=== PATIENT | female | born 1970 | race Caucasian/White ===

== ENCOUNTER 2020-10-24 06:13 | Emergency (ER) | payer OTHER, SELFPAY ==
[2020-10-24 06:24] VITALS: BP 134/92; PULSE 84; RESP 20; TEMP 36.8; O2SAT 96; BMI 30.8
[2020-10-24] MEDS: TRIMETH/SULFA 160/800 (DS) TABLET 1 TAB PO (06:44)
--- NOTE | 2020-10-24 06:44 | ED_ITS ---
HPI - Eye Problem General Chief complaint: Eye Problems Stated complaint: swelling around eyes Time Seen by Provider: 10/24/20 06:24 Source: patient Mode of arrival: Ambulatory Limitations: no limitations History of Present Illness HPI Narrative: 50-year-old otherwise completely healthy woman who presents with 3 days of increasing eyelid edema, erythema and increasing pain. She does not specifically recall trauma, bug bites or specific inflammation along the lash line. She does not have any itching or burning of the eye. There is no vision changes, no pain with tracking, no photophobia, headache, or sinus difficulties or changes. She has never had similar findings. She reports no cough, palpitations, dyspnea, abdominal pain, dysuria, diarrhea. Related Data Previous Rx's Medication Instructions Recorded amoxicillin 500 mg PO TID #15 cap 10/24/20 sulfamethoxazole-trimethoprim 1 tab PO BID #10 tab 10/24/20 [Bactrim DS] Allergies Allergy/AdvReac Type Severity Reaction Status Date / Time No Known Drug Allergies Allergy Verified 10/24/20 06:43 Review of Systems Review of Systems Narrative: Remainder of complete review of systems is otherwise unremarkable except for that included in the HPI. Patient History Social History Smoking Status: Current some day smoker Smoking Status: Current some day smoker tobacco type: cigarettes alcohol intake frequency: a few times a month Substance Use Type: does not use Exam Narrative Exam Narrative: General: Alert appropriate in no acute distress HEENT: Preseptal edema on the right side with erythema and tenderness developing on the medial aspect of the upper lid. No purulence drainage from the eye. Smooth an easy tracking is appreciated. Pupils are equal and reactive bilaterally without pain. There is no vision changes, no involvement of the lower lid. No nasal discharge and no rashes or vesicular lesions appreciated knee area. Respiratory: Able to speak in full sentences, no obvious respiratory distress Skin: No obvious rashes, warm and dry Neurologic: Grossly intact no obvious asymmetries or abnormalities Psych: appropriate insight and affect, cooperative Initial Vital Signs Initial Vital Signs: Vital Signs Temperature 98.2 F 10/24/20 06:24 Pulse Rate 84 10/24/20 06:24 Respiratory Rate 20 10/24/20 06:24 Blood Pressure 134/92 H 10/24/20 06:24 Pulse Oximetry 96 10/24/20 06:24 Course Orders Ordered: Discontinued Medications Trimethoprim/Sulfamethoxazole (Trimeth/Sulfa 160/800 (Ds) Tablet) 1 tab PO NOW ONE Stop: 10/24/20 06:41 Last Admin: 10/24/20 06:44 Dose: 1 tab Documented by: Vital Signs Vital signs: Vital Signs - 8 hr 10/24/20 06:24 Temperature 98.2 F Pulse Rate 84 Respiratory Rate 20 Blood Pressure 134/92 H Pulse Oximetry 96 [facility] - Eye Problem Medical Records Attestation: I reviewed the patient's medical records. [facility] Narrative Medical decision making narrative: Otherwise healthy woman with 3 days of increasing pain and erythema to the right upper eyelid. This does not appear to be a orbital cellulitis or of the shingles outbreak. I suspect that there was likely some type of small irritation to the eyelid and that has since become superinfected which is why the pain and redness swelling or increasing today. Will place her on Septra twice a day along with amoxicillin (antibiotic regimen suggested by up-to-date for preseptal cellulitis) clear instructions for return to the ER reviewed with her. She is safe for home discharge Discharge Plan Departure Patient Disposition: Home Clinical Impression: Periorbital cellulitis Qualifiers: Laterality: right Qualified Code(s): L03.213 - Periorbital cellulitis Instructions: DI for Cellulitis -- Adult Activity Restrictions/Additional Instructions: Thank you for coming in today I suspect that your developing a periorbital cellulitis, and infection in the eyelid itself. I do not think that there is a deeper infection back behind your eye ball. I would recommend continued hot compresses to the eye to encourage drainage. I have started you on Bactrim and amoxicillin. These antibiotics need to be taken for 5 full days. If you find by Sunday that you are getting worse, I would recommend that you return to the emergency room for further evaluation. If at any time you notice a decrease in vision, pain with light going into the eyeball, pain with moving the eyeball itself or developed fevers or severe headache you do need to return to the ER. I hope you heal quickly Prescriptions: New sulfamethoxazole-trimethoprim [Bactrim DS] 800-160 mg tablet 1 tab PO BID Qty: 10 RF: 0 amoxicillin 500 mg capsule 500 mg PO TID Qty: 15 RF: 0
[2020-10-24 07:36] VITALS: BP 123/70; PULSE 66; RESP 18; O2SAT 97
== END 2020-10-24 07:37 | disposition home or self-care (01) ==
LOC: ED 07:16
PROVIDERS: Emergency Provider Emergency Medicine
DX: L03.213 Periorbital cellulitis (principal)
CPT/HCPCS: 99283

== ENCOUNTER → 2021-05-04 08:56 | Outpatient (CLI) | payer OTHER, SELFPAY ==
[2021-05-04 09:33] LABS: COVID19 -Nasal RAPID Negative (Negative)
== END ==
PROVIDERS: Visit Provider Physician Assistant
DX: Z20.822 Contact with and (suspected) exposure to COVID-19 (principal)
CPT/HCPCS: 87635

== ENCOUNTER → 2021-11-15 09:30 | Outpatient (CLI) | payer OTHER, SELFPAY ==
[2021-11-15 11:02] LABS: Alanine Aminotransferase 14 IU/L (<35); Albumin 4.2 g/dL (3.5-5.0); Albumin Globulin Ratio 1.4 (1.0-2.8); Alkaline Phosphatase 47 U/L (38-126); Aspartate Aminotransferase 27 IU/L (14-36); Bilirubin Total 0.6 mg/dL (0.2-1.3); Blood Urea Nitrogen 10 mg/dL (7-17); Calcium 9.1 mg/dL (8.4-10.2); Carbon Dioxide 27 mmol/L (22-32); Chloride 106 mmol/L (98-107); Cholesterol 174 mg/dL (140-199); Estimated Glomerular Filt Rate > 60 mL/min (>60); Globulin 3.1 g/dL (1.7-4.1); Glucose 83 mg/dL (70-100); HDL Cholesterol 48 mg/dL (40-60); HEMOLYSIS < 15 (0-50); LDL Cholesterol Calculated 98 mg/dL (<100); Potassium 4.1 mmol/L (3.4-5.1); Sodium 138 mmol/L (137-145); Total Protein 7.3 g/dL (6.3-8.2); Triglycerides 138 mg/dL (35-150)
== END ==
PROVIDERS: PCP Family Medicine; Referring Provider Family Medicine; Visit Provider Family Medicine
DX: Z13.220 Encounter for screening for lipoid disorders (principal)
CPT/HCPCS: 36415; 80053; 80061

== ENCOUNTER → 2022-02-13 09:23 | Outpatient (CLI) | payer OTHER, SELFPAY ==
[2022-02-13 12:40] LABS: COVID19 -Nasal RAPID Negative (Negative)
== END ==
PROVIDERS: PCP Family Medicine; Visit Provider Surgery
DX: Z01.812 Encounter for preprocedural laboratory examination (principal); Z20.822 Contact with and (suspected) exposure to COVID-19
CPT/HCPCS: 87635; C9803

== ENCOUNTER → 2022-03-13 09:03 | Outpatient (CLI) | payer OTHER, SELFPAY ==
[2022-03-13 10:58] LABS: COVID19 -Nasal RAPID Negative (Negative)
== END ==
PROVIDERS: PCP Family Medicine; Visit Provider Surgery
DX: Z20.822 Contact with and (suspected) exposure to COVID-19 (principal); Z01.812 Encounter for preprocedural laboratory examination
CPT/HCPCS: 87635; C9803

== ENCOUNTER 2022-03-14 10:31 | Day surgery (SDC) | payer OTHER, SELFPAY ==
--- NOTE | 2022-03-14 | PATH_ITS ---
[facility] Accession Number: [id number] . 01 Material submitted: . rectum - RECTUM POLYP . 01 Diagnosis: Rectum, Polyp, Biopsy: Hyperplastic polyp. MRV 03/20/2022 1226 Local . 01 Electronically signed: . Jo-Ann Dawson MD, Pathologist NPI- [id number] . 01 Gross description: . RECTUM POLYP: Received in formalin are 2 fragment(s) of cristina, soft tissue measuring 0.3 x 0.1 x 0.1 cm to 0.2 x 0.1 x 0.1 cm submitted entirely in 1 cassette(s) /CPE 03/18/2022 0712 Local . 01 Pathologist provided ICD-10: K62.1 . 01 CPT . 606530 Specimen Comment: A courtesy copy of this report has been sent to [phone] Performed at: 01 [facility] [address] [place] [address], [place], [place] [id number] MD Meliton Angulo MD Phone: [phone]
[2022-03-14] MEDS: SODIUM CHLORIDE 0.9% 1,000 ML 150 ML IV (10:40)
[2022-03-14 10:52] VITALS: BP 138/89; PULSE 105; RESP 16; TEMP 36.3; O2SAT 99; BMI 29.2
--- NOTE | 2022-03-14 11:37 | PM.HP.1 ---
History of Present Illness History of Present Illness Date Patient Seen: 03/14/22 Time Patient Seen: 11:37 Chief complaint: SCREENING COLONOSCOPY Narrative: The patient presents for colorectal screening. They have never had any previous examination for such. No personal or family history of colon cancer. On further history denies any recent gastrointestinal symptoms. No nausea, vomiting, abdominal pain, loss of appetite, unexplained weight loss, change in bowel habits, diarrhea, constipation, melena, hematochezia, or bright red blood per rectum. Patient History Medical History Ankle pain (~1996) Bunion, left foot Chicken pox (~1977) Hemorrhoid (~2007) Herpes (~2004) History of urinary incontinence (~2011) Left-sided low back pain without sciatica Lumbar region somatic dysfunction Screen for colon cancer Screening for cervical cancer Screening for hyperlipidemia Segmental and somatic dysfunction of abdomen and other regions Shoulder pain (~2007) Skin cancer (~2011) Viral syndrome Surgical History Anesthesia History of tonsillectomy (~1986) History of tubal ligation (~1997) Skin cancer of face (~2020) Family & Social History Social History: household members spouse Tobacco & Substance use: Smoking Status Current every day smoker alcohol intake frequency a few times a month Substance Use Type does not use Meds Home Medications and Allergies Home Medications Medication Instructions Recorded Confirmed Type No Known Home Medications 03/14/22 03/14/22 History Allergies Allergy/AdvReac Type Severity Reaction Status Date / Time No Known Drug Allergies Allergy Verified 03/14/22 10:43 Exam Vital Signs (past 8 hours): - 03/14/22 10:52 Temperature 97.3 F L Pulse Rate 105 H Respiratory Rate 16 Blood Pressure 138/89 Pulse Oximetry 99 Oxygen Delivery Method Room Air Oxygen Delivery Method Room Air Narrative Exam Narrative: General adult woman alert oriented no acute distress Chest nonlabored respirations Extremities warm well perfused Assessment & Plan Assessment & Plan narrative: The patient requires colorectal screening and colonoscopy is recommended. Technical details were discussed. Risks, benefits, alternatives explained. Risks including but not limited to myocardial infarction, aspiration, bleeding, pain, missed lesion, incomplete examination, need for further radiographic studies, colonic perforation, and need for major abdominal surgery were discussed. All questions were answered to their satisfaction, and they are in agreement with this plan. Time Spent With Patient Critical Care time: I spent a total of [] minutes of critical care time on this patient's care today; this time is exclusive of procedural time.
[2022-03-14] MEDS: MIDAZOLAM 5 MG/5 ML VIAL 7 MG IV (11:53)
[2022-03-14] MEDS: fentaNYL 100 MCG/2 ML INJ 200 MCG IV (11:53)
--- NOTE | 2022-03-14 12:06 | P.OP.COLON_ITS ---
Operative Date/Time/Diagnoses Date of procedure: 03/14/22 Time of procedure: 12:06 Pre-op diagnosis: Screening Post-op diagnosis: same Procedure & Clinicians Study performed: Colonoscopy Same procedure as scheduled: Yes Indications: Screening Surgeon: Nain Vasquez Procedure Notes Procedure in detail: Medications: Conscious sedation using 7 mg IV midazolam and 200 mcg IV of fentanyl The history and physical was performed/updated and the patient is ASA class is 1. The procedure was discussed in detail with the patient. Potential risks complications including infection, bleeding, missed diagnosis, perforation, need for surgery, and were explained. Their questions were answered and informed consent was obtained. Patient was brought to the procedure room and placed standard monitoring equipment. The patient's vital signs were monitored continuously throughout the entire procedure. Prior to starting time-out was performed. The patient was placed in the left lateral recumbent position. Procedural sedation was adminis tered. Examination began with a thorough inspection of the perianal area there was no evidence of fissures, fistulae, external hemorrhoids or cutaneous malignancy. The colonoscopy scope was then placed into the anal canal and was advanced to the cecum, which was identified by the ileocecal valve, the appendiceal orifice and the confluence of the taenia. The scope was then slowly withdrawn examining colon thoroughly in all directions, irrigating it of any residual stool. FINDINGS 1. Distal rectum-3 mm polyp removed with biopsy forceps The patient tolerated the procedure well. They will be discharged once criteria are met. The prep was of good/excellent quality. The withdrawl time was 10 minutes. The sedation time was 20 minutes. Specimen(s): other (Rectal polyp) Complications: none Impression: Colonic polyp Post-procedure Recommendations: Will call with biopsy results Disposition: same day surgery
[2022-03-14 12:09] VITALS: BP 107/70; PULSE 83; RESP 18; TEMP 36.4; O2SAT 98
[2022-03-14 12:14] VITALS: BP 101/70; PULSE 84; RESP 11; O2SAT 97
[2022-03-14 12:19] VITALS: BP 108/76; PULSE 80; RESP 21; TEMP 36.4; O2SAT 98
[2022-03-14 12:27] VITALS: BP 110/79; PULSE 79; RESP 16; TEMP 36.4; O2SAT 100
== END 2022-03-14 12:39 | disposition home or self-care (01) ==
PROVIDERS: PCP Family Medicine; Referring Provider Surgery; Visit Provider Surgery
PROC: 0DJD8ZZ Inspection of Lower Intestinal Tract, Via Natural or Artificial Opening Endoscopic (ICD-10-PCS; CPT 45378; principal; 2022-03-14 11:30)
DX: Z12.11 Encounter for screening for malignant neoplasm of colon (principal); K62.1 Rectal polyp
CPT/HCPCS: 45380; 99152; J2250; J3010

== ENCOUNTER → 2023-10-16 07:47 | Outpatient (CLI) | payer OTHER, SELFPAY ==
[2023-10-16 10:10] LABS: BUN Creatinine Ratio 14.3 (6-22); Blood Urea Nitrogen 10 mg/dL (7-17); Calcium 8.4 mg/dL (8.4-10.2); Carbon Dioxide 26 mmol/L (22-32); Chloride 107 mmol/L (98-107); Cholesterol 172 mg/dL (140-199); Estimated Glomerular Filt Rate > 60 mL/min (>60); Glucose 80 mg/dL (70-100); HDL Cholesterol 62 mg/dL (40-60); HEMOLYSIS < 15 (0-50); LDL Cholesterol Calculated 65 mg/dL (<100); Sodium 136 mmol/L (137-145); Triglycerides 225 mg/dL (35-150)
[2023-10-16 11:58] LABS: Urine N gonorrhoeae NOT DETECTED
[2023-10-16 11:59] LABS: Urine Chlamydia NOT DETECTED
[2023-10-16 17:35] LABS: Hepatitis B Surface Antigen NEGATIVE s/c (NEGATIVE)
[2023-10-16 17:48] LABS: HIV 1 & 2 Ab/Ag 4th Gen Combo NEGATIVE (NEGATIVE); Hep C Virus Ab w/Reflex Quant NEGATIVE s/c (NEGATIVE)
[2023-10-17 06:47] LABS: HSV 2 IGG AB > 23.60 index (0.00-0.90); HSV1IGG < 0.91 index (0.00-0.90)
[2023-10-17 08:10] LABS: RPR Screen Non Reactive (Non Reactive)
== END ==
LOC: LAB 07:48
PROVIDERS: PCP Family Medicine; Referring Provider Family Medicine; Visit Provider Family Medicine
DX: Z13.220 Encounter for screening for lipoid disorders (principal); Z20.2 Contact with and (suspected) exposure to infections with a predominantly sexual mode of transmission
CPT/HCPCS: 36415; 80048; 80061; 86592; 86695; 86696; 86803; 87340; 87389; 87491; 87591

== ENCOUNTER → 2024-04-15 15:32 | Outpatient (CLI) | payer OTHER, SELFPAY ==
[2024-04-15 16:43] LABS: Monotest Negative (Negative)
[2024-04-17 08:10] LABS: EBV Virus IgM Ab < 36.0 U/mL (0.0-35.9)
== END ==
PROVIDERS: Nurse Practitioner Family; PCP Family Medicine; Referring Provider Family Medicine; Visit Provider Family Medicine
DX: Z20.828 Contact with and (suspected) exposure to other viral communicable diseases (principal)
CPT/HCPCS: 36415; 86318; 86665

== ENCOUNTER → 2024-04-30 07:06 | Outpatient (CLI) | payer OTHER, SELFPAY ==
[2024-05-01 09:11] LABS: EBV Nuclear Antigen Ab IgG >600.0 U/mL (0.0-17.9)
== END ==
PROVIDERS: PCP Family Medicine; Referring Provider Family Medicine; Visit Provider Family Medicine
DX: Z20.828 Contact with and (suspected) exposure to other viral communicable diseases (principal)
CPT/HCPCS: 36415; 86664

== ENCOUNTER → 2024-08-22 16:26 | Outpatient (CLI) | payer OTHER, SELFPAY ==
--- NOTE | 2024-08-22 16:27 | DI.US.S_ITS ---
PROCEDURE: US CAROTID DOPPLER BI INDICATIONS: abnormal CT at dentist TECHNIQUE: Color and pulse Doppler interrogation was performed of both carotid systems, with image documentation and velocity measurements. COMPARISON: None. FINDINGS: Stenosis calculations are based on SRU (Society of Radiologists in Ultrasound) criteria. The flow velocities and the arterial waveforms are normal within both carotid arterial systems. Atherosclerotic plaque is seen on both sides. The estimated degree of internal carotid artery stenosis is less than 50%. Antegrade flow is confirmed within both vertebral arteries. Note is made of right thyroid nodule measuring up to 12 mm. IMPRESSION: No hemodynamically significant stenosis is seen. Atherosclerotic plaque is noted bilaterally. 12 mm right thyroid nodule. For a nodule of this size in a patient of this age, no specific imaging follow-up is recommended by published criteria, although attention should be paid to this focus on any future follow-up studies. Dictated by: Zain Lucero M.D. on 08/22/2024 at 16:58 Approved by: Zain Lucero M.D. on 08/22/2024 at 17:00
== END ==
PROVIDERS: PCP Family Medicine; Referring Provider Family Medicine; Visit Provider Family Medicine
DX: E78.1 Pure hyperglyceridemia (principal); R93.89 Abnormal findings on diagnostic imaging of other specified body structures; I65.23 Occlusion and stenosis of bilateral carotid arteries; E04.1 Nontoxic single thyroid nodule
CPT/HCPCS: 93880

== ENCOUNTER → 2024-10-01 06:54 | Outpatient (CLI) | payer OTHER, SELFPAY ==
[2024-10-01 07:51] LABS: Add Manual Diff / Slide Review NO; Basophils Absolute Auto 0 /uL (0-100); Basophils Percent Auto 0.4 % (0-2); Eosinophils Absolute Auto 100 /uL (0-450); Eosinophils Percent Auto 1.6 % (2-4); Hematocrit 42.2 % (36-46); Hemoglobin 14.5 g/dL (12.0-16.0); Lymphocytes Absolute Auto 2400 /uL (1100-4500); Lymphocytes Percent Auto 42.3 % (25-40); Mean Corpuscular HGB Conc 34.4 % (30-36); Mean Corpuscular Hemoglobin 32.2 PG (26-34); Mean Corpuscular Volume 93.6 fL (80-100); Monocytes Absolute Auto 600 /uL (0-900); Monocytes Percent Auto 10.7 % (3-14); Neutrophils Absolute Auto 2500 /uL (1500-7000); Platelet Count 292 X10^3/uL (150-400); Red Blood Cell Count 4.51 X10^6/uL (4.0-5.2); Red Cell Distribution Width 12.8 % (11.6-14.8); White Blood Cell Count 5.7 X10^3/uL (4.5-11.0)
[2024-10-01 08:11] LABS: Alanine Aminotransferase 43 IU/L (<35); Albumin 4.4 g/dL (3.5-5.0); Albumin Globulin Ratio 1.6 (1.0-2.8); Alkaline Phosphatase 53 U/L (38-126); Aspartate Aminotransferase 37 IU/L (14-36); BUN Creatinine Ratio 20.4 (6-22); Bilirubin Total 0.3 mg/dL (0.2-1.3); Blood Urea Nitrogen 19 mg/dL (7-17); Calcium 9.3 mg/dL (8.4-10.2); Carbon Dioxide 25 mmol/L (22-32); Chloride 107 mmol/L (98-107); Cholesterol 206 mg/dL (140-199); Estimated Glomerular Filt Rate > 60 mL/min (>60); Globulin 2.7 g/dL (1.7-4.1); Glucose 89 mg/dL (70-99); HDL Cholesterol 66 mg/dL (40-60); HEMOLYSIS < 15 (0-50); LDL Cholesterol Calculated 116 mg/dL (<100); Potassium 4.6 mmol/L (3.4-5.1); Sodium 138 mmol/L (137-145); Total Protein 7.1 g/dL (6.3-8.2); Triglycerides 120 mg/dL (35-150)
[2024-10-01 08:27] LABS: Vitamin D 25 Hydroxy (D3) 31.1 ng/mL (30.0-100.0)
[2024-10-01 08:42] LABS: TSH w/ Reflex to FT4 1.71 uIU/mL (0.47-4.68)
== END ==
LOC: LAB 06:55
PROVIDERS: PCP Family Medicine; Referring Provider Family Medicine; Visit Provider Family Medicine
DX: E78.1 Pure hyperglyceridemia (principal); R63.5 Abnormal weight gain
CPT/HCPCS: 36415; 80053; 80061; 82306; 84443; 85025

== ENCOUNTER 2024-12-09 19:24 | Emergency (ER) | payer OTHER, SELFPAY ==
[2024-12-09 19:35] VITALS: BP 131/84; PULSE 83; RESP 18; TEMP 37.1; O2SAT 98; BMI 34.2
--- NOTE | 2024-12-09 19:44 | DI.RAD.S_ITS ---
PROCEDURE: XR WRIST RT MIN 3V INDICATIONS: dog bite/swelling/bruising/puncture wound TECHNIQUE: 3 views of the wrist were acquired. COMPARISON: None. FINDINGS: Bones: No fractures or dislocations. No suspicious bony lesions. Soft tissues: No suspicious soft tissue calcifications. IMPRESSION: No acute bony abnormality. Dictated by: Antonino Puentes M.D. on 12/09/2024 at 20:28 Approved by: Antonino Puentes M.D. on 12/09/2024 at 20:28
--- NOTE | 2024-12-09 19:44 | DI.RAD.S_ITS ---
PROCEDURE: XR FOREARM RT 2V INDICATIONS: dog bite/swelling/bruising/puncture wound TECHNIQUE: 2 views of the forearm were acquired. COMPARISON: None. FINDINGS: Bones: No fractures or dislocations. No suspicious bony lesions. Soft tissues: No suspicious soft tissue calcifications or masses. Dorsal arm swelling. IMPRESSION: Dorsal arm swelling without radiopaque foreign body. Dictated by: Antonino Puentes M.D. on 12/09/2024 at 20:27 Approved by: Antonino Puentes M.D. on 12/09/2024 at 20:27
--- NOTE | 2024-12-10 00:13 | ED.ANIMALBIT ---
HPI - Animal Bite General Chief Complaint: Animal Bite Stated Complaint: Rt hand animal bite Time Seen by Provider: 12/10/24 00:13 Source: patient Mode of arrival: Ambulatory History of Present Illness HPI narrative: Patient is a 54-year-old female presenting for dog bite to the right forearm by a 40 lb dog, also stating puncture wound to the wrist, dog is vaccinated, patient's tetanus up to date. She denies any other injuries not on any blood thinners. Related Data Previous Rx's ?Medication ?Instructions ?Recorded acyclovir 400 mg tablet 400 mg PO DAILY #30 tabs 08/14/24 amoxicillin 875 mg-potassium 1 tab PO BID 1 week #14 tabs 12/10/24 clavulanate 125 mg tablet Allergies Allergy/AdvReac Type Severity Reaction Status Date / Time No Known Drug Allergies Allergy Verified 10/07/24 15:52 Review of Systems Review of Systems Narrative: General: Denies fever, chills, weight loss HEENT: Denies headache, eye drainage, eye irritation, head trauma, sore throat, voice change Cardiovascular: Denies any chest pain, palpitations, tachycardia Respiratory: Denies any shortness of breath, cough, wheeze, stridor GI/: Denies any abdominal pain, nausea, vomiting, diarrhea, bright red blood per rectum, melanotic stools, urinary frequency, urinary retention, dysuria, hematuria MSK: Denies any joint pain, muscle pains, swelling Skin: Dog bite to right arm Neuro: Denies any headache, lightheadedness, dizziness, fainting, weakness Psych: Denies SI/HI Patient History Medical History (Updated 12/10/24 @ 00:27 by Apolinar Loja DO) Carotid artery stenosis, asymptomatic Thyroid nodule incidentally noted on imaging study Vitamin D insufficiency Transaminitis Elevated BUN Mild hypercholesterolemia Weight gain Abnormal CT scan, neck Stopped smoking with greater than 20 pack year history Herpes genitalis in women Epiphora Hx of skin malignancy Bunion, left foot Screening for cervical cancer Segmental and somatic dysfunction of abdomen and other regions Lumbar region somatic dysfunction Left-sided low back pain without sciatica Shoulder pain (~2007) Ankle pain (~1996) Chicken pox (~1977) Herpes (~2004) History of urinary incontinence (~2011) Hemorrhoid (~2007) Skin cancer (~2011) Viral syndrome Surgical History Anesthesia Skin cancer of face (~2020) History of tubal ligation (~1997) History of tonsillectomy (~1986) Social History household members: spouse Smoking Status: Former smoker tobacco type: cigarettes alcohol intake frequency: a few times a month Exam Narrative Exam Narrative: General: Cooperative, well-developed, not in acute distress HEENT: Normocephalic, atraumatic, PERRLA, normal sclera, eyelids normal Neck: Active full range of motion, atraumatic Chest: Normal to inspection, negative crepitus, no overlying erythema ecchymosis Respiratory: Normal respiratory effort, not in acute respiratory distress, clear to auscultation bilaterally negative cough, wheeze, tachypnea, rhonchi, rales Cardiology: Regular rate rhythm negative gallop, murmur, rubs GI/: No tenderness to palpation, soft, non rigid, normal to inspection, exam deferred MSK: Full active range of motion in all 4 extremities, atraumatic, no tenderness to palpation of any bony prominences, right upper extremities neurovascularly intact Skin: There is a superficial abrasion to the mid right forearm with ecchymosis consistent with a dog bite, there is also 1 puncture wound noted near the base of the right thumb not actively bleeding no tendon involvement, otherwise no other gross deformity Neuro: Alert awake oriented x3, moves all 4 extremities spontaneously, cranial nerves intact, able to answer all questions appropriately follows commands appropriately Psych: Cooperative, negative suicidal or homicidal ideations Initial Vital Signs Initial Vital Signs: Vital Signs Temperature 98.7 F 12/09/24 19:35 Pulse Rate 83 12/09/24 19:35 Respiratory Rate 18 12/09/24 19:35 Blood Pressure 131/84 12/09/24 19:35 Pulse Oximetry 98 12/09/24 19:35 Oxygen Delivery Method Room Air 12/09/24 19:35 Course Orders Ordered: ED Orders 12/09/24 19:44 XR forearm RT 2V Stat XR wrist RT min 3V Stat Vital Signs Vital signs: Vital Signs - 8 hr 12/09/24 19:35 Temperature 98.7 F Pulse Rate 83 Respiratory Rate 18 Blood Pressure 131/84 Pulse Oximetry 98 Oxygen Delivery Method Room Air MDM - Animal Bite Differential Diagnosis Differential diagnosis: Likely bite by animal, cat bite, dog bite and other Imaging Data Extremity x-ray #1: Radiologist's Impression: [address] [address] XRay Report Signed Patient: Negrita Bermudez MR#: [id number] : 1970 Acct:[id number] Age/Sex: 54 / F Date of Service: 12/09/24 Loc: ED Accession Number: [id number] Procedure: XR wrist RT min 3V Ordering Provider: Apolinar Loja D.O. PROCEDURE: XR WRIST RT MIN 3V INDICATIONS: dog bite/swelling/bruising/puncture wound TECHNIQUE: 3 views of the wrist were acquired. COMPARISON: None. FINDINGS: Bones: No fractures or dislocations. No suspicious bony lesions. Soft tissues: No suspicious soft tissue calcifications. IMPRESSION: No acute bony abnormality. Extremity x-ray #2: Radiologist's Impression: [address] [address] XRay Report Signed Patient: Negrita Bermudez MR#: [id number] : 1970 Acct:[id number] Age/Sex: 54 / F Date of Service: 12/09/24 Loc: ED Accession Number: [id number] Procedure: XR forearm RT 2V Ordering Provider: Apolinar Loja D.O. PROCEDURE: XR FOREARM RT 2V INDICATIONS: dog bite/swelling/bruising/puncture wound TECHNIQUE: 2 views of the forearm were acquired. COMPARISON: None. FINDINGS: Bones: No fractures or dislocations. No suspicious bony lesions. Soft tissues: No suspicious soft tissue calcifications or masses. Dorsal arm swelling. IMPRESSION: Dorsal arm swelling without radiopaque foreign body. MDM Narrative Medical decision making narrative: Patient is a 54-year-old female presenting from home for evaluation of a dog bite, she states that it was a 40 lb dog states it was a friend's dog the dog is up-to-date on all vaccinations, patient is up-to-date on tetanus, on exam neurovascularly intact upper extremity, does have a superficial abrasion consistent with dog bite to the right forearm does have 1 puncture wound noted to the right base of the thumb, no active bleeding neurovascularly intact x-rays without any acute fractures or foreign bodies. Patient not on any blood thinners denying any other injuries. She will be started prophylactically on antibiotics and instructed to follow up with the primary care, she was dressed with nonocclusive and was discharged home with outpatient follow up. Discharge Plan Departure Patient Disposition: Home Clinical Impression: Dog bite of right arm Instructions: DI for Dog Bite Activity Restrictions/Additional Instructions: You can use Motrin Tylenol for the pain, you can use ice for the swelling, please take the antibiotics to completion Please read the discharge instructions sheet carefully and bring all papers to all doctor follow-up visits, as it may contain information that your doctor may want to see. Disease processes change and evolve, if your symptoms worsen or if you develop any new symptoms that are concerning to you please return for evaluation. Your evaluation today does not show any evidence of any life-threatening/serious illnesses requiring admission to the hospital or surgery. Please follow-up with your doctor for re-evaluation in approximately 1 day. Seek immediate medical attention for any worrisome symptoms. *If you do not have a primary care provider please contact the [facility] Resource line at [phone]. They will ask some questions about your medical history and help get you set up with a doctor in the community. Prescriptions: New amoxicillin-pot clavulanate 875-125 mg tablet 1 tab PO BID 7 Days Qty: 14 0RF No Action acyclovir 400 mg tablet 400 mg PO DAILY Qty: 30 11RF Referrals: Daniel Dutta DO [Primary Care Provider, Family Practice] Stand Alone Forms: Patient Portal/API
[2024-12-10] MEDS: AMOXICILLIN/CLAV 875/125 MG 1 TAB PO (00:38)
--- NOTE | 2024-12-10 00:49 | PC.NURSE ---
Pt has multiple small abrasion to left forearm and wrist, covered abrasions with bandaids after clensed with soap and water.
[2024-12-10 00:51] VITALS: BP 130/92; PULSE 86; RESP 17; O2SAT 98
== END 2024-12-10 00:52 | disposition home or self-care (01) ==
PROVIDERS: Emergency Provider Student in an Organized Health Care Education/Training Program; PCP Family Medicine
DX: S61.551A Open bite of right wrist, initial encounter (principal); W54.0XXA Bitten by dog, initial encounter
CPT/HCPCS: 73090; 73110; 99283